=== PATIENT | male | born 1990 | race Hispanic/Latino ===

== ENCOUNTER 2017-05-18 21:09 | Emergency (ER) | payer OTHER ==
[2017-05-18 21:18] VITALS: BP 153/82; PULSE 71; RESP 16; O2SAT 100
[2017-05-18 21:37] VITALS: TEMP 98.8
--- NOTE | 2017-05-18 22:14 | ED PDOC ---
HPI: Seizure Time Seen by Provider: 05/18/17 21:28 Chief Complaint (Nursing): Seizure Additional Complaint(s): 26 YO w/ no significant PMH present to the ER w/ a new onset of possible seizures for the last week. He has noticed shaking of his right lower extremity and sometimes right upper extremity followed by a " dazzed/confused state. He denies any loss of consciousness, or loss of bowl and bladder movement. He has never had these symptoms before but he feels they are progressively getting worse. Initially they would happen early in the morning when he woke up, but now have started happening thoughout the day. He feels some soreness in his muscles. No recent URI symptoms. - A episode of "shaking" was noted while next to the patient at beside, right lower extremity shaking was noticed for 30 seconds followed by some light headedness. During the shaking of the right lower extremity he did not loss of consciousness or have any bowl and bladder incontinence. During the eppisode his lower extremities had increased in ridgity during the episode. PMH: None PSH: Appendectomy, Tonsilectomy Allergy None S/H: Uses marajuana occasionally F/H: No significant family history Past Medical History Vital Signs: Last Vital Signs Temp 98.8 F 05/18/17 21:16 Pulse 71 05/18/17 21:16 Resp 16 05/18/17 21:16 BP 153/82 H 05/18/17 21:16 Pulse Ox 100 05/19/17 00:19 - Medical History PMH: No Chronic Diseases - Surgical History Surgical History: No Surg Hx - Family History Family History: States: No Known Family Hx - Living Arrangements Living Arrangements: With Friends/Others - Social History Current smoker - smoking cessation education provided: No Alcohol: Social Drugs: Cannabis - Home Medications Home Medications: Ambulatory Orders Medication Instructions Recorded Cyclobenzaprine [Flexeril] 5 mg PO Q8 PRN #15 tab 05/19/17 - Allergies Allergies/Adverse Reactions: Allergies Allergy/AdvReac Type Severity Reaction Status Date / Time No Known Allergies Allergy Verified 05/18/17 21:16 Physical Exam - Physical Exam Appears: Positive for: Well, No Acute Distress Head Exam: Positive for: ATRAUMATIC, NORMAL INSPECTION, NORMOCEPHALIC Skin: Positive for: Normal Color Eye Exam: Positive for: Normal appearance, PERRL Neck: Positive for: Normal Cardiovascular/Chest: Positive for: Regular Rate, Rhythm Respiratory: Positive for: Normal Breath Sounds. Negative for: Accessory Muscle Use, Crackles, Rales, Wheezing Gastrointestinal/Abdominal: Positive for: Normal Exam, Bowel Sounds, Soft. Negative for: Tenderness Back: Positive for: Normal Inspection Extremity: Negative for: Calf Tenderness DTR - Bicep (R): 3+ DTR - Bicep (L): 3+ DTR - Knee (R): 3+ DTR - Knee (L): 3+ Neurologic/Psych: Positive for: Alert, rib knitter II-XII, Oriented, Gait (WNL). Negative for: Motor/Sensory Deficits, Facial Droop - Laboratory Results Result Diagrams: 05/18/17 21:55 05/18/17 23:22 - ECG O2 Sat by Pulse Oximetry: 100 - Progress ED Course And Treament: 26 YO M w/ no significant PMH presents to the ED w/ new onset of shaking of his extremities 1) Unvoluntary jerking of right lower extremity -possibly do to Muscle spasm Labs ordered: - EKG: Consistent with normal findings - Head CT: Unremarkable - CPK : WNL - CBC: WNL - CMP: WNL - Lactic acid: WNL - Urine toxicology: WNL - U/A: Unremarkable Rx: given - Diazepam 5mg given - Patient did not have any more episodes after the Diazepam was given , blood work and imaging studies were unremarkable. Patient has been reassessed at 12: 41 am and appears to be doing well. Patient has been given a script of Flexeril to take Q8 as needed. Please return if symptoms worsen. Medical Decision Making Medical Decision Makin YO M w/ no significant PMH presents to the ED w/ new onset of shaking of his extremities 1) Unvoluntary jerking of right lower extremity -possibly do to Muscle spasm Labs ordered: - EKG: Consistent with normal findings - Head CT: Unremarkable - CPK : WNL - CBC: WNL - CMP: WNL - Lactic acid: WNL - Urine toxicology: WNL - U/A: Unremarkable Rx: given - Diazepam 5mg given - Patient did not have any more episodes after the Diazepam was given , blood work and imaging studies were unremarkable. Patient has been reassessed at 12: 41 am and appears to be doing well. Patient has been given a script of Flexeril to take Q8 as needed. Please return if symptoms worsen. Follow up with PMD in 2-3 days and neurologist within the week. Disposition - Clinical Impression Clinical Impression: Muscle spasm of right leg - Patient ED Disposition Is Patient to be Admitted: No - Disposition Referrals: Tate Ceron MD [Staff Provider] - Disposition: Routine/Home Disposition Time: 00:18 Condition: GOOD Additional Instructions: - Get plenty of sleep, avoid stress, avoid bright lights, avoid alcohol. Please follow up with PMD in 2-3 days. Follow up with neurologist in the next week. If symptoms reoccur or worsen please return to the ER. Flexeril script has been given to the patient to take Q8 as needed for muscle spasms Prescriptions: Cyclobenzaprine [Flexeril] 5 mg PO Q8 PRN #15 tab PRN Reason: muscle spasm Instructions: Muscle Spasm (ED) Print Language: MOROCCAN
[2017-05-18 22:41] LABS: BASO # 0.1 K/uL (0.0-0.2); BASO % 0.8 % (0.0-2.0); EOS # 0.1 K/uL (0.0-0.7); EOS % 1.4 % (0.0-4.0); HEMATOCRIT 45.2 % (35.0-51.0); LYMPH # 2.7 K/uL (1.0-4.3); MEAN CELL VOLUME 83.5 fl (80.0-94.0); MEAN CORPUSCULAR HEMOGLOBIN 28.7 pg (27.0-31.0); MEAN CORPUSCULAR HGB CONC 34.4 g/dL (33.0-37.0); MEAN PLATELET VOLUME 8.8 fl (7.2-11.7); MONO # 0.3 K/uL (0.0-0.8); MONO % 4.2 % (0.0-10.0); NEUT # 5.1 K/uL (1.8-7.0); NEUT % 61.6 % (50.0-75.0); RED CELL DISTRIBUTION WIDTH 13.5 % (11.5-14.5); WHITE BLOOD COUNT 8.3 K/uL (4.8-10.8)
[2017-05-18 23:40] LABS: ALB/GLOB RATIO 1.5 (1.0-2.1); ALCOHOL SERUM < 10 mg/dl (0-10); ALKALINE PHOSPHATASE 63 U/L (38-126); ALT/SGPT 49 U/L (21-72); AST/SGOT 26 U/L (17-59); BILIRUBIN,TOTAL 0.6 mg/dl (0.2-1.3); BLOOD UREA NITROGEN 14 mg/dl (9-20); CALCIUM 9.3 mg/dL (8.4-10.2); CARBON DIOXIDE 24 mmol/L (22-30); CHLORIDE 103 mmol/L (98-107); GFR AFRICAN-AMERICAN > 60; GLUCOSE,RANDOM 96 mg/dL (75-110); PHOSPHOROUS 3.8 mg/dl (2.5-4.5); POTASSIUM 3.6 MMOL/L (3.6-5.0); SODIUM 138 mmol/l (132-148); TOTAL PROTEIN 7.6 G/DL (6.3-8.2)
--- NOTE | 2017-05-19 11:44 | CT ---
PROCEDURE: CT HEAD WITHOUT CONTRAST. HISTORY: possible seizure COMPARISON: None available. TECHNIQUE: Axial computed tomography images were obtained through the head/brain without intravenous contrast. Radiation dose: Total exam DLP = 1346.06 mGy-cm. This CT exam was performed using one or more of the following dose reduction techniques: Automated exposure control, adjustment of the mA and/or kV according to patient size, and/or use of iterative reconstruction technique. FINDINGS: HEMORRHAGE: No intracranial hemorrhage. BRAIN: No mass effect or edema. No atrophy or chronic microvascular ischemic changes. VENTRICLES: Unremarkable. No hydrocephalus. CALVARIUM: There are no acute calvarial fracture seen. PARANASAL SINUSES: Visualized paranasal sinuses are well-developed and currently well-aerated. No fluid levels seen to suggest acute hemorrhage or sinusitis. Small of mucous retention cyst seen along the right parasagittal wall of the sphenoid sinus septum. MASTOID AIR CELLS: Unremarkable as visualized. No inflammatory changes. OTHER FINDINGS: None. IMPRESSION: No acute intracranial hemorrhage.
--- NOTE | 2017-05-20 01:17 | CARD ---
APPROVED REPORT EKG Measurement Heart [id number] <Conclusion> Normal sinus rhythm with sinus arrhythmia Incomplete right bundle branch block Borderline ECG
== END 2017-05-19 00:15 | disposition home or self-care (01) ==
LOC: H.ER 21:09
DX: M62.831 Muscle spasm of calf (principal); R41.0 Disorientation, unspecified
CPT/HCPCS: 70450; 80053; 82550; 83605; 83735; 84100; 85025; 93005; 99282; G0480